=== PATIENT | male | born 1950 | race Caucasian/White ===

== ENCOUNTER 2017-02-15 11:57 | Inpatient (IN) ==
[2017-02-15] MEDS ORDERED: *HR* OxyCODONE Immed Rel 5 MG TABLET PO PRN (14:09)
[2017-02-15] MEDS ORDERED: Dextrose Gel 15 GM PO PRN ×2 (14:19)
[2017-02-15] MEDS ORDERED: *HR* Dextrose 50 % in Water (Syg) 50 ML SYRINGE IVP PRN (14:19)
[2017-02-15] MEDS ORDERED: D5% in Water 1,000 ML IVC PRN (14:19)
[2017-02-15] MEDS: *HR* OxyCODONE Immed Rel 5 MG TABLET PO PRN (17:27)
[2017-02-15] MEDS: *HR* GlipiZIDE 5 MG TABLET PO SCH (18:00)
[2017-02-15] MEDS ORDERED: *HR* Enoxaparin 30 MG/0.3 ML SYRINGE SQ SCH (18:00)
[2017-02-15] MEDS ORDERED: *HR* Warfarin 5 MG TABLET PO SCH (18:00)
[2017-02-15] MEDS: *HR* Metformin 500 MG TABLET PO SCH (20:46)
[2017-02-15] MEDS ORDERED: Insulin DETEMIR 100 UNIT/ML X5UNITS SQ SCH (21:00)
[2017-02-16] MEDS: *HR* OxyCODONE Immed Rel 5 MG TABLET PO PRN (05:33)
[2017-02-16 06:02] LABS: Basophils % 0.4 %; Eosinophils # 0.3 K/mcL (0.0-0.6); Eosinophils % 4.1 %; Hematocrit 32.5 % (37.5-50.1); Hemoglobin 10.9 g/dL (12.9-16.9); Immature Granulocytes % 0.3 % (0-4); Lymphocytes # 0.8 K/mcL (0.6-4.6); Lymphocytes % 11.1 %; Mean Corpuscular HGB Conc 33.5 g/dL (31.6-35.5); Mean Corpuscular Hemoglobin 28.5 pg (28.0-33.3); Mean Corpuscular Volume 84.9 fL (83.0-100.0); Mean Platelet Volume 10.6 fL (9.4-12.4); Monocytes # 0.9 K/mcL (0.0-1.3); Monocytes % 12.7 %; Neutrophils # 4.9 K/mcL (1.6-8.9); Platelet Count 192 K/mcL (140-400); Red Blood Count 3.83 M/mcL (4.19-5.50); Red Cell Distribution Width 13.6 % (11.5-14.5); Segmented Neutrophils % 71.4 %
[2017-02-16 06:08] LABS: INR 1.3; Prothrombin Time 13.7 Seconds (9.4-12.1)
[2017-02-16 06:10] LABS: Activated Partial Thrombo Time 26.1 Seconds (26.0-36.0)
[2017-02-16 06:19] LABS: BUN/Creatinine Ratio 27 (6-26); Blood Urea Nitrogen 28 mg/dL (8-26); Calcium 8.9 mg/dL (8.6-10.8); Carbon Dioxide 23 mEq/L (19-29); Chloride 104 mEq/L (98-109); Glucose 134 mg/dL (70-99); Osmolality,Calculated 297 (280-300); Potassium 3.9 mEq/L (3.5-4.5); Sodium 140 mEq/L (136-145); eGFR For African Americans > 60 (> 60); eGFR For Non-African Americans > 60 (> 60)
[2017-02-16] MEDS: *HR* GlipiZIDE 5 MG TABLET PO SCH ×2 (08:08→17:20)
[2017-02-16] MEDS: Furosemide 40 MG TABLET PO SCH (08:09)
[2017-02-16] MEDS: Aspirin Enteric Coated 81 MG Tablet PO SCH (08:09)
[2017-02-16] MEDS: *HR* Metformin 500 MG TABLET PO SCH ×2 (08:09→17:20)
[2017-02-16] MEDS: amLODIPine 5 MG TABLET PO SCH (08:09)
[2017-02-16] MEDS: Multivit/Ca/Min/Fe/FA 1 TAB TABLET PO SCH (08:09)
[2017-02-16] MEDS: Valsartan 160 MG TABLET PO SCH (08:09)
--- NOTE | 2017-02-16 10:42 | Internal Med History&Physical ---
Date of Encounter: 02/16/17 Time of Encounter: 10:10 Assessment and Plan (1) Status post total knee replacement, right Current visit: No Status: Acute PT and OT consults have been ordered. I will schedule OxyContin 10 mg twice a day for baseline pain relief. He will continue with prn analgesics also. Continue Coumadin. Will add therapeutic level Lovenox since his INR is subtherapeutic (2) Anemia Current visit: Yes Status: Acute Preop hemoglobin was normal. We will monitor CBC. Qualifiers: Anemia type: unspecified type Qualified Code(s): D64.9 - Anemia, unspecified (3) HTN (hypertension) Current visit: No Status: Chronic Continue Diovan, Norvasc, and Lasix. Qualifiers: Hypertension type: unspecified secondary hypertension Qualified Code(s): I15.9 - Secondary hypertension, unspecified; I15 - Secondary hypertension (4) DMII (diabetes mellitus, type 2) Current visit: No Status: Chronic Hemoglobin A1c was 8.1% on 01/06/2017. Continue Glucotrol and Glucophage. Will do Accu-Cheks with SSI. Qualifiers: Diabetes mellitus complication status: with unspecified complications Diabetes mellitus prison insulin use: with intermodal truck driver use Qualified Code(s) : E11.8 - Type 2 diabetes mellitus with unspecified complications; Z79.4 - FPC (current) use of insulin (5) Factor V Leiden Current visit: No Status: Chronic Continue Coumadin. Will add Lovenox at therapeutic dose since pro time is subtherapeutic. (6) CHF (congestive heart failure) Current visit: No Status: Chronic We will check BNP peptide in a.m. Qualifiers: Congestive heart failure type: unspecified congestive heart failure type Congestive heart failure chronicity: unspecified congestive heart failure chronicity Qualified Code(s): I50.9 - Heart failure, unspecified Internal Medicine - H&P: HPI Chief complaint: Right total knee replacement Admitted From: Hospital to Hospital Transfer Plans for Post Hospital Care: Home History of present illness: Mr. Verdugo is a 66 year old male who underwent elective right total knee replacement by 02/12/2017 at [facility]. His postop course was unremarkable and he was transferred to [facility] swing bed for rehabilitation therapy prior to returning home. His orthopedic history is significant for left total knee replacement October 2016 and right total hip replacement March 2004. He has DJD but denies gout or other bone joint or muscle disorders. Past Med Surg Social Fam HX - Past Medical History Medical history: DVT, diabetes, hyperlipidemia, hypertension Psychiatric history: other - Past Surgical History Surgical History: cataract, cholecystectomy, other - Social History Smoking Status: Former smoker Packs per day: 0 Smokeless Tobacco Status: No Alcohol use: none Drug use: none Internal Medicine - H&P: Meds Amlodipine Besylate 10 mg PO DAILY 10/23/16 [History] Aspirin Enteric Coated [Aspirin EC] 81 mg PO DAILY 10/23/16 [History] Atorvastatin Calcium [Lipitor] 20 mg PO DAILY 10/23/16 [History] Furosemide [Lasix] 40 mg PO DAILY 10/23/16 [History] Insulin Glargine,Hum.rec.anlog [Lantus Solostar] 80 unit SQ HS 10/23/16 [History ] Metformin HCl [Glucophage] 1,000 mg PO BID 10/23/16 [History] Multivitamin [One Daily Multivitamin] 1 each PO DAILY 10/23/16 [History] Valsartan [Diovan] 320 mg PO DAILY 10/23/16 [History] Warfarin [Coumadin] 10 mg PO SUTHFRSA 10/23/16 [History] Warfarin [Coumadin] 15 mg PO MOTUWE 10/23/16 [History] glipiZIDE [Glipizide] 10 mg PO BID 10/23/16 [History] Enoxaparin [Lovenox] 30 mg SQ Q12HR #10 syr 02/12/17 [Rx] OxyCODONE Immed Rel [Roxicodone 5 MG] 5 - 10 mg PO Q6HR PRN #40 tablet 02/12/17 [Rx] Allergies cephalexin [From Keflex] Allergy (Verified 02/12/17 09:38) Hives Penicillins [PCN] Allergy (Verified 02/12/17 09:38) Hives meloxicam Adverse Reaction (Verified 02/12/17 09:38) See Comments causes lymphedema pioglitazone [From Actos] Adverse Reaction (Verified 02/12/17 09:38) See Comments retains water All Systems PM: A 10-system review of systems was performed and is negative for pertinent findings except as documented above in the HPI. Review of systems: Gen.: He states his weight has been stable past few months Cardiovascular: He has history of hypertension and states he had heart failure when taking Actos but it resolved when medication was discontinued. He has factor V Leiden deficiency and had pulmonary embolism June 2011. He is now on chronic warfarin anticoagulation. He denies [place] Respiratory: He is a lifelong nonsmoker and has no known chronic lung disease GI: He had gallstone pancreatitis in the past. He has had cholecystectomy. He denies disorders of his liver. : Denies hematuria dysuria or kidney stones Neurologic: He denies large distribution strokes or seizures. 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 He takes medication for hyperlipidemia. He denies thyroid disease Hematology/oncology: Denies blood disorders other than factor V Leiden deficiency. He denies internal malignancies Psychiatric: He denies anxiety depression or other mental health issues Musk skeletal: As per history of present illness - Constitutional Vitals: Temp Pulse Resp BP Pulse Ox 98.3 F 91 17 123/70 93 02/16/17 07:37 02/16/17 07:37 02/16/17 07:37 02/16/17 07:37 02/16/17 07:37 Exam: Gen.: His well-developed overweight male lying in bed who appears in no acute distress at present time HEENT: Head is atraumatic and normocephalic. Eyes: EOMI. There is no scleral icterus. Mouth: Mucosa is moist. Neck: Supple and nontender. There is no thyromegaly or adenopathy noted. Heart: Regular without murmurs gallops or ectopics Lungs: No wheezes or crackles are heard. Abdomen: Soft and nontender. No masses or guarding are noted. Extremities: He has a dressing over the right anterior knee surgical site. The incision appears clean and dry. The left knee has a healed surgical scar from previous TKR. His dorsalis pedis and posterior tibial pulses are trace palpable bilaterally. Neurologic: Mental status: He is talkative and a good historian. Cranial nerves : Smile is symmetric. Forehead wrinkles bilaterally. Tongue protrudes midline. EOMI. Motor: There is no pronator drift. Cerebellar: Finger to nose is intact bilaterally. Skin: Warm and dry Internal Med - H&P Results - Labs CBC & Chem 7: 02/16/17 05:30 02/16/17 05:30 Labs: Short CBC 02/16/17 Range/Units 05:30 WBC 6.8 (4.3-11.1) K/mcL Hgb 10.9 L (12.9-16.9) g/dL Hct 32.5 L (37.5-50.1) % Plt Count 192 (140-400) K/mcL Neutrophils # 4.9 (1.6-8.9) K/mcL BMP 02/16/17 05:30 Sodium 140 Potassium 3.9 Chloride 104 Carbon Dioxide 23 BUN 28 H Creatinine 1.03 Glucose 134 H Calcium 8.9
[2017-02-16] MEDS: *HR* Enoxaparin 150 MG/ML SYRINGE SQ SCH ×2 (12:03→17:25)
[2017-02-16] MEDS: *HR* OxyCODONE ER (12 HR) 10 MG TABLET PO SCH (17:21)
[2017-02-16] MEDS: *HR* Warfarin 5 MG TABLET PO SCH (17:21)
[2017-02-16] MEDS: LANTUS SQ SCH (21:04)
[2017-02-17] MEDS: *HR* Enoxaparin 150 MG/ML SYRINGE SQ SCH ×2 (06:15→17:38)
[2017-02-17] MEDS: *HR* OxyCODONE ER (12 HR) 10 MG TABLET PO SCH ×2 (06:18→17:38)
[2017-02-17 06:26] LABS: INR 1.3; Prothrombin Time 14.4 Seconds (9.4-12.1)
[2017-02-17] MEDS: *HR* GlipiZIDE 5 MG TABLET PO SCH ×2 (07:57→16:57)
[2017-02-17] MEDS: *HR* Metformin 500 MG TABLET PO SCH ×2 (07:58→16:57)
[2017-02-17] MEDS: Aspirin Enteric Coated 81 MG Tablet PO SCH (08:19)
[2017-02-17] MEDS: Multivit/Ca/Min/Fe/FA 1 TAB TABLET PO SCH (08:19)
[2017-02-17] MEDS: Furosemide 40 MG TABLET PO SCH (08:19)
[2017-02-17] MEDS: amLODIPine 5 MG TABLET PO SCH (08:20)
[2017-02-17] MEDS: Valsartan 160 MG TABLET PO SCH (08:20)
[2017-02-17] MEDS: *HR* OxyCODONE Immed Rel 5 MG TABLET PO PRN ×2 (09:17→20:17)
[2017-02-17] MEDS: *HR* Warfarin 5 MG TABLET PO SCH (16:57)
--- NOTE | 2017-02-17 17:38 | Internal Med Progress Note ---
Date of Encounter: 02/17/17 Time of Encounter: 17:20 - Assessment and plan (1) Status post total knee replacement, right Current Visit: No Status: Acute Assessment and plan: February 17. Continue PT and OT intervention. Continue Coumadin with Lovenox until INR is therapeutic. (2) Anemia Current Visit: Yes Status: Acute Assessment and plan: February 17. Will monitor CBC periodically. Qualifiers: Anemia type: unspecified type Qualified Code(s): D64.9 - Anemia, unspecified (3) HTN (hypertension) Current Visit: No Status: Chronic Assessment and plan: February 17. Continue Diovan, Norvasc, and Lasix. Qualifiers: Hypertension type: unspecified secondary hypertension Qualified Code(s): I15.9 - Secondary hypertension, unspecified; I15 - Secondary hypertension (4) DMII (diabetes mellitus, type 2) Current Visit: No Status: Chronic Assessment and plan: February 17. Hemoglobin A1c was 8.1% on 01/06/2017. Continue Glucotrol, Glucophage , and Accu-Cheks with SSI. Qualifiers: Diabetes mellitus complication status: with unspecified complications Diabetes mellitus middle or intermediate school principal insulin use: with middle or intermediate school principal use Qualified Code(s) : E11.8 - Type 2 diabetes mellitus with unspecified complications; Z79.4 - snf (current) use of insulin (5) Factor V Leiden Current Visit: No Status: Chronic Assessment and plan: February 17. Continue Coumadin and Lovenox as per above (6) CHF (congestive heart failure) Current Visit: No Status: Chronic Assessment and plan: February 17. Bn peptide was normal at 22. Continue present regimen Qualifiers: Congestive heart failure type: unspecified congestive heart failure type Congestive heart failure chronicity: unspecified congestive heart failure chronicity Qualified Code(s): I50.9 - Heart failure, unspecified - Subjective Interval history: February 17. He has no new complaints. He thinks he has refused the OxyContin agrees to have it discontinued and use only prn analgesics - Constitutional Vitals: Temp Pulse Resp BP Pulse Ox 98.5 F 82 16 168/75 95 02/17/17 06:40 02/17/17 14:22 02/17/17 14:22 02/17/17 14:22 02/17/17 14:22 Exam: He is resting comfortably on the side of the bed appears in no acute distress. His affect is bright and cheerful. I reviewed his medications and lab results. Internal Medicine: Result - Labs CBC & Chem 7: 02/16/17 05:30 02/16/17 05:30 - ABG Interpretation ABG results: PT/INR, D-dimer PT 14.4 Seconds (9.4-12.1) H 02/17/17 05:13 - VTE Documentation of Mechanical Device: Graduated compression elastic hosiery Consult Discharge Plan - Plan Referrals: Ahmet Carroll DO [Primary Care Provider] - 1 week
[2017-02-17] MEDS ORDERED: *HR* Warfarin 5 MG TABLET PO SCH (18:00)
[2017-02-17] MEDS: LANTUS SQ SCH (22:58)
[2017-02-18] MEDS: *HR* Enoxaparin 150 MG/ML SYRINGE SQ SCH ×2 (10:35→17:47)
[2017-02-18] MEDS: *HR* GlipiZIDE 5 MG TABLET PO SCH ×2 (10:37→17:47)
[2017-02-18] MEDS: Furosemide 40 MG TABLET PO SCH (10:38)
[2017-02-18] MEDS: *HR* Metformin 500 MG TABLET PO SCH ×2 (10:38→17:48)
[2017-02-18] MEDS: amLODIPine 5 MG TABLET PO SCH (10:38)
[2017-02-18] MEDS: Valsartan 160 MG TABLET PO SCH (10:38)
[2017-02-18] MEDS: Aspirin Enteric Coated 81 MG Tablet PO SCH (10:38)
[2017-02-18] MEDS: Multivit/Ca/Min/Fe/FA 1 TAB TABLET PO SCH (10:38)
[2017-02-18 11:46] LABS: INR 1.8; Prothrombin Time 19.4 Seconds (9.4-12.1)
[2017-02-18] MEDS: *HR* OxyCODONE Immed Rel 5 MG TABLET PO PRN (12:21)
[2017-02-18] MEDS: *HR* Warfarin 5 MG TABLET PO SCH (17:47)
[2017-02-18] MEDS: LANTUS SQ SCH (20:32)
[2017-02-19] MEDS: *HR* OxyCODONE Immed Rel 5 MG TABLET PO PRN ×2 (04:04→09:42)
[2017-02-19] MEDS: *HR* Enoxaparin 150 MG/ML SYRINGE SQ SCH ×2 (06:49→17:00)
[2017-02-19] MEDS: Valsartan 160 MG TABLET PO SCH (09:35)
[2017-02-19] MEDS: Aspirin Enteric Coated 81 MG Tablet PO SCH (09:35)
[2017-02-19] MEDS: *HR* Metformin 500 MG TABLET PO SCH ×2 (09:35→17:00)
[2017-02-19] MEDS: Furosemide 40 MG TABLET PO SCH (09:35)
[2017-02-19] MEDS: amLODIPine 5 MG TABLET PO SCH (09:36)
[2017-02-19] MEDS: *HR* GlipiZIDE 5 MG TABLET PO SCH ×2 (09:36→17:00)
[2017-02-19] MEDS: Multivit/Ca/Min/Fe/FA 1 TAB TABLET PO SCH (09:36)
--- NOTE | 2017-02-19 11:17 | Internal Med Progress Note ---
Date of Encounter: 02/19/17 Time of Encounter: 11:00 - Assessment and plan (1) Status post total knee replacement, right Current Visit: No Status: Acute Assessment and plan: February 17. Continue PT and OT intervention. Continue Coumadin with Lovenox until INR is therapeutic. February 18. He has told child welfare social worker he wishes to transfer his therapy to [facility]. We will restart scheduled low-dose OxyContin (2) Anemia Current Visit: Yes Status: Acute Assessment and plan: February 17. Will monitor CBC periodically. February 19. Will recheck CBC in a.m. Qualifiers: Anemia type: unspecified type Qualified Code(s): D64.9 - Anemia, unspecified (3) HTN (hypertension) Current Visit: No Status: Chronic Assessment and plan: February 17. Continue Diovan, Norvasc, and Lasix. Qualifiers: Hypertension type: unspecified secondary hypertension Qualified Code(s): I15.9 - Secondary hypertension, unspecified; I15 - Secondary hypertension (4) DMII (diabetes mellitus, type 2) Current Visit: No Status: Chronic Assessment and plan: February 17. Hemoglobin A1c was 8.1% on 01/06/2017. Continue Glucotrol, Glucophage , and Accu-Cheks with SSI. Qualifiers: Diabetes mellitus complication status: with unspecified complications Diabetes mellitus rodent exterminator insulin use: with correction use Qualified Code(s) : E11.8 - Type 2 diabetes mellitus with unspecified complications; Z79.4 - intermediate (current) use of insulin (5) Factor V Leiden Current Visit: No Status: Chronic Assessment and plan: February 17. Continue Coumadin and Lovenox as per above February 19. INR has risen to 1.8. Continue Coumadin and Lovenox. (6) CHF (congestive heart failure) Current Visit: No Status: Chronic Assessment and plan: February 17. Bn peptide was normal at 22. Continue present regimen Qualifiers: Congestive heart failure type: unspecified congestive heart failure type Congestive heart failure chronicity: unspecified congestive heart failure chronicity Qualified Code(s): I50.9 - Heart failure, unspecified - Subjective Interval history: February 17. He has no new complaints. He thinks he has refused the OxyContin agrees to have it discontinued and use only prn analgesics February 18. He is experiencing significant pain in his knee after therapy session today. - Constitutional Vitals: Temp Pulse Resp BP Pulse Ox 98.9 F 106 18 135/69 96 02/19/17 08:51 02/19/17 08:51 02/19/17 08:51 02/19/17 08:51 02/19/17 08:51 Exam: He appears uncomfortable lying in the bed. He was reluctant to consider restarting the scheduled OxyContin but agreed it might be best. He declines schedule laxatives for opioid-induced constipation. He seemed reluctant to take enough Coumadin to raise his INR to at least 2.0 but I explained the physiology and told him he was not adequately protected at INR 1.5-1.6 he has typically had. Internal Medicine: Result - Labs CBC & Chem 7: 02/16/17 05:30 02/16/17 05:30 - ABG Interpretation ABG results: PT/INR, D-dimer PT 19.4 Seconds (9.4-12.1) H 02/18/17 11:34 - VTE Documentation of Mechanical Device: Graduated compression elastic hosiery Consult Discharge Plan - Plan Referrals: Ahmet Carroll DO [Primary Care Provider] - 1 week
[2017-02-19] MEDS ORDERED: MOM Conc 10 ML UD.LIQ PO PRN (11:23)
[2017-02-19] MEDS: *HR* OxyCODONE ER (12 HR) 10 MG TABLET PO SCH ×3 (11:57→20:39)
[2017-02-19] MEDS: *HR* Warfarin 5 MG TABLET PO SCH (17:01)
[2017-02-19] MEDS: LANTUS SQ SCH (20:40)
[2017-02-20 06:09] LABS: Basophils % 0.4 %; Eosinophils # 0.1 K/mcL (0.0-0.6); Eosinophils % 1.5 %; Hematocrit 33.2 % (37.5-50.1); Hemoglobin 10.8 g/dL (12.9-16.9); Immature Granulocytes % 0.6 % (0-4); Mean Corpuscular HGB Conc 32.5 g/dL (31.6-35.5); Mean Corpuscular Hemoglobin 28.1 pg (28.0-33.3); Mean Corpuscular Volume 86.5 fL (83.0-100.0); Mean Platelet Volume 9.7 fL (9.4-12.4); Monocytes # 0.8 K/mcL (0.0-1.3); Monocytes % 11.5 %; Neutrophils # 4.9 K/mcL (1.6-8.9); Platelet Count 294 K/mcL (140-400); Red Blood Count 3.84 M/mcL (4.19-5.50); Red Cell Distribution Width 13.7 % (11.5-14.5)
[2017-02-20 06:18] LABS: INR 2.3; Prothrombin Time 25.7 Seconds (9.4-12.1)
[2017-02-20 06:34] LABS: BUN/Creatinine Ratio 28 (6-26); Blood Urea Nitrogen 30 mg/dL (8-26); Calcium 9.1 mg/dL (8.6-10.8); Carbon Dioxide 28 mEq/L (19-29); Chloride 105 mEq/L (98-109); Glucose 59 mg/dL (70-99); Osmolality,Calculated 302 (280-300); Sodium 144 mEq/L (136-145); eGFR For African Americans > 60 (> 60); eGFR For Non-African Americans > 60 (> 60)
[2017-02-20] MEDS: amLODIPine 5 MG TABLET PO SCH (08:26)
[2017-02-20] MEDS: Multivit/Ca/Min/Fe/FA 1 TAB TABLET PO SCH (08:26)
[2017-02-20] MEDS: Furosemide 40 MG TABLET PO SCH (08:26)
[2017-02-20] MEDS: *HR* OxyCODONE ER (12 HR) 10 MG TABLET PO SCH ×2 (08:26→21:07)
[2017-02-20] MEDS: *HR* GlipiZIDE 5 MG TABLET PO SCH ×2 (08:27→17:54)
[2017-02-20] MEDS: Valsartan 160 MG TABLET PO SCH (08:27)
[2017-02-20] MEDS: Aspirin Enteric Coated 81 MG Tablet PO SCH (08:27)
[2017-02-20] MEDS: *HR* Metformin 500 MG TABLET PO SCH ×2 (08:27→17:54)
[2017-02-20] MEDS ORDERED: Preparation H Ointment 30 GM TUBE RC PRN (16:47)
--- NOTE | 2017-02-20 16:51 | Internal Med Progress Note ---
Date of Encounter: 02/20/17 Time of Encounter: 16:40 - Assessment and plan (1) Status post total knee replacement, right Current Visit: No Status: Acute Assessment and plan: February 17. Continue PT and OT intervention. Continue Coumadin with Lovenox until INR is therapeutic. February 18. He has told rn social work he wishes to transfer his therapy to [facility]. We will restart scheduled low-dose OxyContin February 20. He still wishes placement at [facility] when bed is available. Continue present regimen otherwise. (2) Anemia Current Visit: Yes Status: Acute Assessment and plan: February 17. Will monitor CBC periodically. February 19. Will recheck CBC in a.m. Qualifiers: Anemia type: unspecified type Qualified Code(s): D64.9 - Anemia, unspecified (3) HTN (hypertension) Current Visit: No Status: Chronic Assessment and plan: February 17. Continue Diovan, Norvasc, and Lasix. Qualifiers: Hypertension type: unspecified secondary hypertension Qualified Code(s): I15.9 - Secondary hypertension, unspecified; I15 - Secondary hypertension (4) DMII (diabetes mellitus, type 2) Current Visit: No Status: Chronic Assessment and plan: February 17. Hemoglobin A1c was 8.1% on 01/06/2017. Continue Glucotrol, Glucophage , and Accu-Cheks with SSI. 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 Continue Coumadin and Lovenox as per above February 18. INR has risen to 1.8. Continue Coumadin and Lovenox. February 20. We will hold Coumadin today and recheck INR in a.m. (6) CHF (congestive heart failure) Current Visit: No Status: Chronic Assessment and plan: February 17. Bn peptide was normal at 22. Continue present regimen Qualifiers: Congestive heart failure type: unspecified congestive heart failure type Congestive heart failure chronicity: unspecified congestive heart failure chronicity Qualified Code(s): I50.9 - Heart failure, unspecified - Subjective Interval history: Blessing 3. He has no new complaints. He thinks he has refused the OxyContin agrees to have it discontinued and use only prn analgesics February 18. He is experiencing significant pain in his knee after therapy session today. February 20. Reports bleeding from his hemorrhoids since the INR has risen - Constitutional Vitals: Temp Pulse Resp BP Pulse Ox 97.7 F 88 17 158/78 94 02/20/17 07:33 02/20/17 07:33 02/20/17 07:33 02/20/17 07:33 02/20/17 07:33 Exam: He is resting comfortably in bed and appears in no acute distress. I reviewed his medications and lab results. Internal Medicine: Result - Labs CBC & Chem 7: 02/20/17 05:55 02/20/17 05:55 Labs: Short CBC 02/20/17 Range/Units 05:55 WBC 6.8 (4.3-11.1) K/mcL Hgb 10.8 L (12.9-16.9) g/dL Hct 33.2 L (37.5-50.1) % Plt Count 294 D (140-400) K/mcL Neutrophils # 4.9 (1.6-8.9) K/mcL BMP 02/20/17 05:55 Sodium 144 Potassium 4.0 Chloride 105 Carbon Dioxide 28 BUN 30 H Creatinine 1.08 Glucose 59 L Calcium 9.1 - ABG Interpretation ABG results: PT/INR, D-dimer PT 25.7 Seconds (9.4-12.1) H 02/20/17 05:55 - VTE Documentation of Mechanical Device: Graduated compression elastic hosiery Consult Discharge Plan - Plan Referrals: Ahmet Carroll DO [Primary Care Provider] - 1 week
[2017-02-20] MEDS: LANTUS SQ SCH (21:08)
[2017-02-21] MEDS: *HR* OxyCODONE Immed Rel 5 MG TABLET PO PRN (01:27)
[2017-02-21 06:39] LABS: INR 2.1; Prothrombin Time 22.8 Seconds (9.4-12.1)
[2017-02-21] MEDS: Aspirin Enteric Coated 81 MG Tablet PO SCH (08:54)
[2017-02-21] MEDS: amLODIPine 5 MG TABLET PO SCH (08:54)
[2017-02-21] MEDS: *HR* OxyCODONE ER (12 HR) 10 MG TABLET PO SCH ×2 (08:54→20:53)
[2017-02-21] MEDS: *HR* Metformin 500 MG TABLET PO SCH ×2 (08:54→17:22)
[2017-02-21] MEDS: Multivit/Ca/Min/Fe/FA 1 TAB TABLET PO SCH (08:55)
[2017-02-21] MEDS: *HR* GlipiZIDE 5 MG TABLET PO SCH ×2 (08:55→17:22)
[2017-02-21] MEDS: Furosemide 40 MG TABLET PO SCH (08:55)
[2017-02-21] MEDS: Valsartan 160 MG TABLET PO SCH (08:59)
[2017-02-21] MEDS: LANTUS SQ SCH (20:52)
[2017-02-22 07:23] VITALS: BP 147/83
[2017-02-22] MEDS: amLODIPine 5 MG TABLET PO SCH (08:48)
[2017-02-22] MEDS: Furosemide 40 MG TABLET PO SCH (08:48)
[2017-02-22] MEDS: *HR* OxyCODONE ER (12 HR) 10 MG TABLET PO SCH (08:48)
[2017-02-22] MEDS: *HR* GlipiZIDE 5 MG TABLET PO SCH (08:48)
[2017-02-22] MEDS: *HR* Metformin 500 MG TABLET PO SCH (08:48)
[2017-02-22] MEDS: Aspirin Enteric Coated 81 MG Tablet PO SCH (08:48)
[2017-02-22] MEDS: Valsartan 160 MG TABLET PO SCH (09:35)
[2017-02-22] MEDS: Multivit/Ca/Min/Fe/FA 1 TAB TABLET PO SCH (09:35)
--- NOTE | 2017-02-22 09:46 | Discharge Summary ---
Date of Encounter: 02/22/17 Time of Encounter: 09:35 - Discharge Diagnosis (1) Status post total knee replacement, right Priority: Primary Status: Acute (2) Anemia Priority: Secondary Status: Acute Qualifiers: Anemia type: unspecified type Qualified Code(s): D64.9 - Anemia, unspecified (3) HTN (hypertension) Priority: Secondary Status: Chronic Qualifiers: Hypertension type: unspecified secondary hypertension Qualified Code(s): I15.9 - Secondary hypertension, unspecified; I15 - Secondary hypertension (4) DMII (diabetes mellitus, type 2) Priority: Secondary Status: Chronic Qualifiers: Diabetes mellitus complication status: with unspecified complications Diabetes mellitus senior living insulin use: with senior living use Qualified Code(s) : E11.8 - Type 2 diabetes mellitus with unspecified complications; Z79.4 - terminal gauger (current) use of insulin (5) Factor V Leiden Priority: Secondary Status: Chronic (6) CHF (congestive heart failure) Priority: Secondary Status: Chronic Qualifiers: Congestive heart failure type: unspecified congestive heart failure type Congestive heart failure chronicity: unspecified congestive heart failure chronicity Qualified Code(s): I50.9 - Heart failure, unspecified - Discharge Medications Prescriptions: OxyCODONE Immed Rel [Roxicodone 5 MG] 5 - 10 mg PO Q6HR PRN #40 tablet PRN Reason: Pain OxyCODONE ER (12 HR) [OxyCONTIN] 10 mg PO Q12H #10 tab.er.12h Warfarin [Coumadin] 13 mg PO 1800 365 Days Home Medications: Amlodipine Besylate 10 mg PO DAILY 10/23/16 [History] Aspirin Enteric Coated [Aspirin EC] 81 mg PO DAILY 10/23/16 [History] Atorvastatin Calcium [Lipitor] 20 mg PO DAILY 10/23/16 [History] Furosemide [Lasix] 40 mg PO DAILY 10/23/16 [History] Insulin Glargine,Hum.rec.anlog [Lantus Solostar] 80 unit SQ HS 10/23/16 [History ] Metformin HCl [Glucophage] 1,000 mg PO BID 10/23/16 [History] Multivitamin [One Daily Multivitamin] 1 each PO DAILY 10/23/16 [History] Valsartan [Diovan] 320 mg PO DAILY 10/23/16 [History] glipiZIDE [Glipizide] 10 mg PO BID 10/23/16 [History] Enoxaparin [Lovenox] 30 mg SQ Q12HR #10 syr 02/12/17 [Rx] OxyCODONE ER (12 HR) [OxyCONTIN] 10 mg PO Q12H #10 tab.er.12h 02/22/17 [Rx] OxyCODONE Immed Rel [Roxicodone 5 MG] 5 - 10 mg PO Q6HR PRN #40 tablet 02/22/17 [Rx] Warfarin [Coumadin] 13 mg PO 1800 365 Days 02/22/17 [Rx] Allergies/Adverse Reactions: Allergies cephalexin [From Keflex] Allergy (Verified 02/12/17 09:38) Hives Penicillins [PCN] Allergy (Verified 02/12/17 09:38) Hives meloxicam Adverse Reaction (Verified 02/12/17 09:38) See Comments causes lymphedema pioglitazone [From Actos] Adverse Reaction (Verified 02/12/17 09:38) See Comments retains water Date of admission: 02/15/17 11:57 Primary care physician: Ahmet Carroll, Consults: 02/15/17 13:47 Consult to Occupational Therapy [CONS] Routine Comment: eval, develop, and implement POC Reason for Consult: eval, develop, and implement POC Consult to Physical Therapy [CONS] Routine Comment: eval, develop, and implement POC Reason for Consult: eval, develop, and implement POC Consult to Director Surface Transportation [CONS] Routine Reason for SW Consult: D/C planning - Patient Status Disposition: Transfer SNF Functional capacity at discharge: uses cane/walker Overall status at discharge: patient is progressing back to baseline - Discharge Instructions - Diet and Activity Activity: as per physical therapy Diet: diabetic diet Hospital course: Mr. Verdugo is a 66 year old male who underwent elective right total knee replacement by 02/12/2017 at [facility]. His postop course was unremarkable and he was transferred to [facility] swing bed for rehabilitation therapy prior to returning home. Initial orders were written by the emergency room physician. I saw him on February 16 and performed the swing bed history and physical. He was given OxyContin scheduled for baseline pain control. He declined it for approximately 2 days but the pain worsened so he resumed use. He also had Roxicodone IR available for when necessary use. He reported he was dissatisfied with the lack of equipment in the rehabilitation program. He wished to be transferred to [facility] for ongoing therapy. Arrangements were complete on February 22 for him to go there. His Coumadin was adjusted and INR reached 2.3 on February 20. He reported he had bleeding from hemorrhoids and other perineal locations so the dose was held. He will resume a dose of 13 mg daily on discharge to [facility]. - Time Spent with Patient Total time spent providing and/or coordinating discharge services: - Constitutional Vitals: Temp Pulse Resp BP Pulse Ox 97.3 F L 79 16 147/83 96 02/22/17 07:05 02/22/17 07:05 02/22/17 07:05 02/22/17 07:05 02/22/17 07:05 - VTE Documentation of Mechanical Device: Graduated compression elastic hosiery
--- NOTE | 2017-02-22 09:54 | Physician Discharge Referral ---
ExtendedCare Referral Info Transfer To: [facility] Provider in Charge: Markell Provider in Charge after Transfer: PCP Institutional Level of Care: Skilled - Diagnosis (1) Status post total knee replacement, right Priority: Primary Status: Acute (2) Anemia Priority: Secondary Status: Acute (3) HTN (hypertension) Priority: Secondary Status: Chronic (4) DMII (diabetes mellitus, type 2) Priority: Secondary Status: Chronic (5) Factor V Leiden Priority: Secondary Status: Chronic (6) CHF (congestive heart failure) Priority: Secondary Status: Chronic Prognosis: Good Aware of Diagnosis: Patient Aware of Prognosis: Patient - Transfer Medications Prescriptions: OxyCODONE Immed Rel [Roxicodone 5 MG] 5 - 10 mg PO Q6HR PRN #40 tablet PRN Reason: Pain OxyCODONE ER (12 HR) [OxyCONTIN] 10 mg PO Q12H #10 tab.er.12h Warfarin [Coumadin] 13 mg PO 1800 365 Days Home Medications: Amlodipine Besylate 10 mg PO DAILY 10/23/16 [History] Aspirin Enteric Coated [Aspirin EC] 81 mg PO DAILY 10/23/16 [History] Atorvastatin Calcium [Lipitor] 20 mg PO DAILY 10/23/16 [History] Furosemide [Lasix] 40 mg PO DAILY 10/23/16 [History] Insulin Glargine,Hum.rec.anlog [Lantus Solostar] 80 unit SQ HS 10/23/16 [History ] Metformin HCl [Glucophage] 1,000 mg PO BID 10/23/16 [History] Multivitamin [One Daily Multivitamin] 1 each PO DAILY 10/23/16 [History] Valsartan [Diovan] 320 mg PO DAILY 10/23/16 [History] glipiZIDE [Glipizide] 10 mg PO BID 10/23/16 [History] Enoxaparin [Lovenox] 30 mg SQ Q12HR #10 syr 02/12/17 [Rx] OxyCODONE ER (12 HR) [OxyCONTIN] 10 mg PO Q12H #10 tab.er.12h 02/22/17 [Rx] OxyCODONE Immed Rel [Roxicodone 5 MG] 5 - 10 mg PO Q6HR PRN #40 tablet 02/22/17 [Rx] Warfarin [Coumadin] 13 mg PO 1800 365 Days 02/22/17 [Rx] Allergies/Adverse Reactions: Allergies cephalexin [From Keflex] Allergy (Verified 02/12/17 09:38) Hives Penicillins [PCN] Allergy (Verified 02/12/17 09:38) Hives meloxicam Adverse Reaction (Verified 02/12/17 09:38) See Comments causes lymphedema pioglitazone [From Actos] Adverse Reaction (Verified 02/12/17 09:38) See Comments retains water - Respiratory Orders Smoking Cessation: Smoking cessation has been advised. For more information, call the [place] Tobacco Quit Line at 1-606-RDTV-NOW. - Lab Orders Lab Orders: Other (include drug levels w/frequency) (Pro time/INR in 3 days then weekly, CBC with differential, BMP in 3 days) - Mobility Orders Ambulate - Rehabiliation Orders Rehab Potential: Good Rehab Orders: Evaluation for Physical Therapy, Evaluation for Occupational Therapy CERTIFICATION: I certify that the transfer of the above named patient to an Extended Care Facility is necessary for the continuing treatment of the diagnosis listed. The above information is true and accurate reflection of patient's current condition. Confidential - Redisclosure prohibited without a patient's written consent.
== END 2017-02-22 11:05 | DRG 560 ==
LOC: INPPIK 11:57
PROVIDERS: ADMIT Internal Medicine; ATTEND Internal Medicine